=== PATIENT | female | born 1985 | race Caucasian/White ===

== ENCOUNTER 2018-04-24 08:11 | Emergency (ER) | payer SELFPAY ==
[2018-04-24 08:39] VITALS: BP 140/92
--- NOTE | 2018-04-24 09:06 | UC ---
Throat Pain/Nasal Júnior HPI - HPI Summary HPI Summary: 32 yo female c/o cough, nasal discharge, sore throat and loosing her voice for several days. HEr baby has same symptoms with low grade fever. She is currently , LMD 2 weeks ago. Only medications are MVI - History of Current Complaint Chief Complaint: UCRespiratory Stated Complaint: SORE THROAT,FEVER Time Seen by Provider: 04/24/18 08:21 Hx Obtained From: Patient Hx Last Menstrual Period: 04/17/18 Severity: Mild Pain Intensity: 2 Cough: Nonproductive Associated Signs & Symptoms: Positive: Negative - Allergies/Home Medications Allergies/Adverse Reactions: Allergies Allergy/AdvReac Type Severity Reaction Status Date / Time No Known Allergies Allergy Verified 04/24/18 08:39 Home Medications: Home Medications Dextromethorphan HBr [Tussin Cough] 04/24/18 [History] PMH/Surg Hx/FS Hx/Imm Hx Previously Healthy: Yes - Surgical History Surgical History: Yes Surgery Procedure, Year, and Place: 2 c sections - Family History Known Family History: Positive: None - Social History Alcohol Use: None Substance Use Type: None Smoking Status (MU): Never Smoked Tobacco Review of Systems Constitutional: Fatigue ENT: Sore Throat Respiratory: Cough All Other Systems Reviewed And Are Negative: Yes Physical Exam Triage Information Reviewed: Yes Appearance: Well-Appearing, No Pain Distress, Obese Vital Signs: Initial Vital Signs Temp 98.0 F 04/24/18 08:33 Pulse 88 04/24/18 08:33 Resp 16 04/24/18 08:33 BP 140/92 04/24/18 08:33 Pulse Ox 97 04/24/18 08:33 Vital Signs Reviewed: Yes Eyes: Positive: Conjunctiva Clear ENT: Positive: Hearing grossly normal, Pharynx normal, TMs normal Neck: Positive: Supple, Nontender, No Lymphadenopathy Respiratory: Positive: Chest non-tender, Lungs clear, Normal breath sounds, No respiratory distress Cardiovascular: Positive: RRR, No Murmur, Pulses Normal, Brisk Capillary Refill Throat Pain/Nasal Course/Dx - Course Course Of Treatment: rapid strep negative, viral URI and laryngitis, continue PO fluids, tylenol as needed. f/u with PCP in a week - Differential Dx/Diagnosis Provider Diagnoses: viral URI. Laryngitis Discharge - Sign-Out/Discharge Documenting (check all that apply): Patient Departure All imaging exams completed and their final reports reviewed: No Studies - Discharge Plan Condition: Stable Disposition: HOME Patient Education Materials: Upper Respiratory Infection (ED), Laryngitis (ED) , Acetaminophen (By mouth) Referrals: No Primary Care Phys,NOPCP [Primary Care Provider] - [facility] [place] [facility] [Outside] - Billing Disposition and Condition Condition: STABLE Disposition: Home
== END 2018-04-24 09:12 | disposition home or self-care (01) ==
LOC: UCEAST 08:11
DX: J06.9 Acute upper respiratory infection, unspecified (principal); J04.0 Acute laryngitis
CPT/HCPCS: 87651; 99202; G0463

== ENCOUNTER 2024-04-25 05:52 | Inpatient (IN) ==
[~2024-04-25 05:52] MED LIST: Acetaminophen IV 1 GM/100ML 1,000 MG/100 ML BAG IV PRN; Metoclopramide 5 MG/ML VIAL (10 mg) IV PRN; Naloxone 0.4 mg VIAL 0.4 mg/ml 1 ml VIAL IV PUSH PRN; Ondansetron 4 mg VIAL 2 MG/ML 2 ml VIAL IV PRN
[2024-04-25] MEDS: ceFOXitin 2 GM IVPREMIX 2 GM/50 ML BAG IVPB ONE (06:26)
[2024-04-25] MEDS: Sodium Citrate/Citric Acid LIQ 15 ML UDC PO ONE (06:26)
[2024-04-25] MEDS: Lactated Ringers 1000 ml BAG 1,000 ML IV SCH (06:27)
[2024-04-25 06:38] LABS: ABS Eosinophils 0.1 10^3/uL (0.0-0.5); ABS Lymphocytes 2.3 10^3/uL (1.0-4.8); ABS Monocytes 0.5 10^3/uL (0.0-0.9); ABS Neutrophils 4.9 10^3/uL (1.5-7.6); ABS Nucleated RBC 0.01 10^3/ul; Eosinophil % 1.8 %; Hematocrit 32.7 % (35-45); Hemoglobin 11.4 g/dL (11.5-14.3); Lymphocyte % 29.3 %; Mean Corpuscular Hemoglobin 29.1 pg (27-33); Mean Corpuscular Hgb Conc 34.7 g/dL (31-36); Mean Corpuscular Volume 83.7 fL (80-97); Mean Platelet Volume 9.3 fL (7.5-11.2); Nucleated Red Blood Cells % 0.1 %/100WBC (0.0-0.8); Platelet Count 238 10^3/uL (150-450); Red Blood Count 3.91 10^6/uL (3.63-4.92); Red Cell Distribution Width 13.9 % (12-17); White Blood Count 7.9 10^3/uL (3.8-11.8)
[2024-04-25] MEDS ORDERED: Metoclopramide 5 MG/ML VIAL (10 mg) ONE (06:51)
[2024-04-25] MEDS ORDERED: Oxytocin 10 UNITS/ML 1 ML VIAL ONE (06:51)
[2024-04-25] MEDS ORDERED: Phenylephrine 40 mcg/mL 10mL (400mcg) SYRINGE ONE (06:52)
[2024-04-25] MEDS ORDERED: Phenylephrine IV 10 MG/ML 1 ml VIAL ONE (06:52)
[2024-04-25] MEDS ORDERED: Sodium Chloride 0.9% 10 ML ONE (06:52)
[2024-04-25] MEDS ORDERED: Morphine PF AMP (0.5MG/ML) 5 MG/10 ML AMP ONE (07:05)
[2024-04-25] MEDS ORDERED: Ondansetron 4 mg VIAL 2 MG/ML 2 ml VIAL ONE (07:16)
[2024-04-25] MEDS ORDERED: Acetaminophen IV 1 GM/100ML 1,000 MG/100 ML BAG IV ONE (08:35)
[2024-04-25] MEDS ORDERED: Witch Hazel PAD JAR TOPICAL PRN (09:42)
[2024-04-25] MEDS ORDERED: Glycerin ADULT 2.4 gm SUPP PR PRN (09:42)
[2024-04-25] MEDS ORDERED: Dibucaine 1% OINT 28.35 GM TUBE PR PRN (09:42)
[2024-04-25] MEDS ORDERED: Lactated Ringers 1000 ml BAG 1,000 ML IV SCH (10:00)
[2024-04-25 10:38] LABS: Urine Appearance Clear; Urine Bilirubin Negative (Negative); Urine Blood Negative (Negative); Urine Color Yellow; Urine Glucose Negative (Negative); Urine Ketones 2+ (Negative); Urine Nitrite Negative (Negative); Urine Protein Trace (Negative); Urine Specific Gravity 1.022 (1.002-1.030); Urine Urobilinogen Negative (Negative)
[2024-04-25 10:53] LABS: Urine Benzodiazepine Screen None Detected (None Detect); Urine Cannabinoids Screen None Detected (None Detect); Urine Opiates Screen None Detected (None Detect)
[2024-04-25] MEDS: Oxytocin in LR 20,000 MILLI.UNIT/1,000 ML BAG IV SCH (11:11)
[2024-04-25] MEDS: Lidocaine 1% VIAL 10 MG/ML 30 ML VIAL ONE (11:12)
[2024-04-25] MEDS: Buffered Lidocaine 1% SYRIN 1 ml INTRADERM ONE (11:14)
[2024-04-25] MEDS: Lactated Ringers 1000 ml BAG 1,000 ML IV ONE (11:15)
[2024-04-26 08:12] LABS: ABS Basophils 0.1 10^3/uL (0.0-0.1); ABS Eosinophils 0.1 10^3/uL (0.0-0.5); ABS Lymphocytes 1.9 10^3/uL (1.0-4.8); ABS Monocytes 0.6 10^3/uL (0.0-0.9); ABS Neutrophils 7.9 10^3/uL (1.5-7.6); ABS Nucleated RBC 0.01 10^3/ul; Eosinophil % 0.5 %; Hematocrit 30.4 % (35-45); Hemoglobin 10.3 g/dL (11.5-14.3); Lymphocyte % 18.2 %; Mean Corpuscular Hemoglobin 28.8 pg (27-33); Mean Corpuscular Volume 84.5 fL (80-97); Mean Platelet Volume 9.1 fL (7.5-11.2); Nucleated Red Blood Cells % 0.1 %/100WBC (0.0-0.8); Platelet Count 176 10^3/uL (150-450); Red Blood Count 3.59 10^6/uL (3.63-4.92); White Blood Count 10.5 10^3/uL (3.8-11.8)
[2024-04-26] MEDS: RHO D Immune Globulin (HUMAN) 300 MCG = 1,500 I.U. INJ IM PRN (14:43)
[2024-04-28 09:37] VITALS: BP 144/76
== END 2024-04-28 17:15 | disposition home or self-care (01) | DRG 785 ==
LOC: MCHOB 05:52
PROVIDERS: ADMIT Obstetrics & Gynecology; ATTEND Obstetrics & Gynecology